=== PATIENT | female | born 1945 | race Caucasian/White ===

== ENCOUNTER 2023-02-18 08:36 | Outpatient (CLI) | payer MEDICARE, SELFPAY | END 2023-02-18 08:37 | disposition home or self-care (01) | LOC: INJ CL 08:38 | PROVIDERS: PCP Family Medicine; Visit Provider Family Medicine | DX: M54.16 Radiculopathy, lumbar region (principal); M51.36 Other intervertebral disc degeneration, lumbar region | CPT/HCPCS: 62323; J0702; Q9966 ==

== ENCOUNTER 2024-09-29 09:46 | Outpatient (CLI) | payer MEDICARE, SELFPAY ==
--- NOTE | 2024-09-29 10:00 | CRLHL7_ITS ---
For Patients: As a result of the Century Cures Act, medical imaging exams and procedure reports are released immediately into your electronic medical record. You may view this report before your referring provider. If you have questions, please contact your health care provider. INDICATION: MILD COGNITIVE IMPAIRMENT, POOR MEMORY DUE TO MINIMAL SLEEP TECHNIQUE: Non-contrast CT of the head is submitted. COMPARISON: CT brain dated 07/19/2020 FINDINGS: [id number] diffuse parenchymal volume loss with commensurate ex vacuo dilatation of the ventricles and sulci. No sign of mass, hemorrhage, or midline shift. Left inferior maxillary sinus small retention cyst. Mild mucosal thickening in the left sphenoid sinus. The visualized orbits are grossly unremarkable. No skull fractures. IMPRESSION: No acute intracranial hemorrhage or mass effect. [id number] diffuse parenchymal volume loss. Please note that all CT scans at this facility use dose modulation, iterative reconstruction, and/or weight-based dosing when appropriate to reduce radiation dose to as low as reasonably achievable. Dictated by Jaime Ferris MD @ 09/29/2024 2:45:37 PM (Electronically Signed)
== END 2024-09-29 09:47 | disposition home or self-care (01) ==
LOC: CT 09:49
PROVIDERS: PCP Family Medicine; Visit Provider Nurse Practitioner
DX: G31.84 Mild cognitive impairment of uncertain or unknown etiology (principal)
CPT/HCPCS: 70450